=== PATIENT | female | born 2000 | race Caucasian/White ===

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

== ENCOUNTER 2025-07-22 17:47 | Emergency (ER) | payer MEDICAID, SELFPAY ==
[2025-07-22 17:47] VITALS: BP 122/80; PULSE 91; RESP 16; TEMP 36.9; O2SAT 96; BMI 45.7
--- NOTE | 2025-07-22 17:52 | ED.RN ---
ems reports prison reported pt has significant history of placing foreign objects in vaginal area. attempting to strangulate self with cords, gowns or anything she can get her hands on.
--- NOTE | 2025-07-22 18:08 | EX.ED.VIS.PS ---
HPI HPI - Psych History of Present Illness Chief Complaint: Suicidal Informant: patient Onset/Context/Timing Onset: Weeks (1) Context: Gradual Onset Timing: Continuous Worsened by: - (Nothing) Relieved by: Nothing Associated Symptoms Associated Symptoms - Psych: Positive for Depressed, Suicidal Thoughts and Auditory Hallucinations; Negative for Change in Eating, Change in sleeping, Paranoia or Visual Hallucinations Specific plan (suicidal thought): Tying a cord around her neck Narrative Narrative: Patient presents with suicidal ideations that became worse today. Patient states that they are gradually getting worse over the past week. Patient states that she tried to tie a cord around her neck earlier today. Patient states she feels like she would try to hurt herself any way I can. Patient admits to some auditory hallucinations where she has hearing voices. Patient states the voices are telling her to do something stupid. Patient denies any visual hallucinations. Patient denies any paranoid ideations. Patient states nothing made it worse and nothing makes it better. [facility] Medical History (Updated 07/22/25 @ 20:[address] Patel Soliz, DO) Depression Asthma Home Medications ?Medication ?Instructions ?Recorded ?Last Taken ?Type loratadine 10 mg tablet 10 mg PO DAILY 05/16/16 07/22/25 History acetaminophen 325 mg capsule 650 mg PO Q6H 07/22/25 Unknown History albuterol sulfate 90 mcg/actuation 2 puff inhalation TID PRN 07/22/25 Unknown History aerosol inhaler shortness of breath or wheezing aluminum-mag hydroxide-simethicone 10 ml PO Q6H PRN dyspepsia 07/22/25 Unknown History 200 mg-200 mg-20 mg/5 mL oral susp (Antacid-Antigas) asenapine maleate 10 mg sublingual 10 mg sublingual BID 07/22/25 07/22/25 History tablet budesonide-formoterol HFA 80 2 puff inhalation BID 07/22/25 07/22/25 History mcg-4.5 mcg/actuation aerosol inhaler (Symbicort) chlorpromazine 50 mg tablet 150 mg PO DAILY 07/22/25 07/21/25 History cholecalciferol (vitamin D3) 25 25 mcg PO DAILY 07/22/25 07/22/25 History mcg (1,000 unit) tablet ferrous sulfate 325 mg (65 mg 325 mg PO DAILY 07/22/25 07/22/25 History iron) tablet fluticasone propionate 50 2 spray intranasal DAILY 07/22/25 07/22/25 History mcg/actuation nasal spray,suspension hydroxyzine HCl 50 mg tablet 50 mg PO TID PRN anxiety 07/22/25 Unknown History levothyroxine 88 mcg tablet 88 mcg PO DAILY 07/22/25 07/22/25 History naltrexone 50 mg tablet 50 mg PO DAILY 07/22/25 07/22/25 History oxcarbazepine 600 mg tablet 600 mg PO BID 07/22/25 07/22/25 History oxybutynin chloride 5 mg tablet 5 mg PO TID 07/22/25 07/22/25 History pantoprazole 40 mg tablet,delayed 40 mg PO DAILY 07/22/25 07/22/25 History release polyethylene glycol 3350 17 17 g PO DAILY PRN constipation 07/22/25 Unknown History gram/dose oral powder prazosin 2 mg capsule 2 mg PO QHS 07/22/25 07/21/25 History sodium chloride 0.65 % nasal spray 2 spray intranasal Q2H PRN 07/22/25 Unknown History aerosol (Saline Mist) epistaxis trazodone 50 mg tablet 50 mg PO QHS PRN insomnia 07/22/25 Unknown History Allergy/AdvReac Type Severity Reaction Status Date / Time cabbage Allergy Intermediate nausea Verified 07/22/25 20:06 Penicillins Allergy Intermediate Rash Verified 07/22/25 20:06 risperidone Allergy Intermediate Hypotension Verified 07/22/25 20:06 and nausea Fish Containing Products Allergy Mild Rash Verified 07/22/25 20:06 Surgical History (Updated 07/22/25 @ 18:[address] Patel Soliz DO) Hx of wisdom tooth extraction Hx of cholecystectomy Social History Smoking Status: Never smoker ROS ROS ED Constitutional Constitutional ED: Denies chills or fever(s) Eyes Eyes: Denies blurry vision or change in vision ENT ENT ED: Denies rhinorrhea or sore throat Cardiovascular Cardiovascular: Denies chest pain or palpitations Respiratory/Chest Respiratory/Chest: Denies cough or dyspnea Gastrointestinal Gastrointestinal: Denies nausea or vomiting Genitourinary Genitourinary ED: Denies dysuria or hematuria Musculoskeletal Musculoskeletal: Reports neck pain; Denies back pain Integumentary Denies abscess or rash Neurologic Neurologic: Reports headache(s); Denies weakness Psychiatric Psychiatric: Reports depression and suicidal thoughts Allergic/Immunologic Allergic/Immunologic ED: Denies mouth swelling or urticaria EXAM Physical Exam Const Vital Signs: 07/22/25 17:47 07/22/25 18:47 07/22/25 19:00 Temperature 98.4 F Temperature Source Oral Pulse Rate 91 89 89 Respiratory Rate 16 16 Blood Pressure 122/80 H 146/97 H Blood Pressure Mean 94 113 Pulse Ox 96 96 96 Oxygen Delivery Method Room Air Room Air 07/22/25 19:50 Temperature Temperature Source Pulse Rate 78 Respiratory Rate 16 Blood Pressure 146/97 H Blood Pressure Mean 113 Pulse Ox 94 Oxygen Delivery Method Room Air Positive well nourished and well developed Constitutional Narrative: BMI is 45.8. General Appearance ED: well developed and NAD HEENT Reports moist mucous membranes HEENT Narrative: Oropharynx is clear. Airway is patent. normocephalic and atraumatic Neck supple and no JVD General: Negative for tenderness Resp normal respiratory effort and clear to auscultation bilaterally Cardio Rate: regular rate Rhythm: regular rhythm GI non-tender and non-distended Palpation: soft Neuro oriented x3, CN's II-XII intact bilaterally and no sensory deficits noted [place] Coma Scale: document GCS findings Spontaneous Obeys Commands Oriented 15 Sensorium / Orientation: alert Motor Exam: strength 5/5 throughout Psych mental status grossly normal Attitude: calm Activity / Motor Behavior: fidgetting Speech: minimal and soft Mood & Affect: depressed and flat affect Thought Content: suicidality, No phobia(s), No delusion(s) and hallucination(s) Positive for auditory Attention / Concentration: attention grossly intact MDM MDM MDM Narrative Medical decision making narrative: Medical screening labs will be obtained. CBC will be obtained to assess for leukocytosis and anemia. Basic metabolic profile will be obtained to assess for electrolyte abnormality renal function. Serum alcohol will be obtained to assess for alcohol intoxication. Serum hCG will be obtained to assess for . Urine drug screen will be obtained to assess for substance abuse. Lab Data Attestation: I reviewed the patient's lab results. Lab results narrative: CBC was reviewed. There is a mild anemia with a hemoglobin of 11.6 and hematocrit of 34.6. The remainder is within normal limits. Basic metabolic profile was reviewed and was within normal limits. Serum alcohol level was reviewed and was less than 10.1. Serum hCG was reviewed and was negative. Urine drug screen was reviewed and was negative. Labs: Laboratory Results - last 24 hr 07/22/25 18:11 WBC 9.9 RBC 4.77 Hgb 11.6 L Hct 34.6 L MCV 72.5 L MCH 24.3 L MCHC 33.5 RDW Std Deviation 51.3 H RDW Coeff of Teddy 19.7 H Plt Count 315 MPV 9.3 Immature Gran % (Auto) 0.500 Neut % (Auto) 72.7 H Lymph % (Auto) 17.6 L [place] % (Auto) 7.7 Eos % (Auto) 0.9 Baso % (Auto) 0.6 Absolute Neuts (auto) 7.2 Absolute Lymphs (auto) 1.74 Nucleated RBC % 0 Sodium 136 Potassium 3.9 Chloride 103 Carbon Dioxide 21.1 Anion Gap 12 BUN 8 Creatinine 0.71 Estim Creat Clear Calc 143.03 Est GFR (MDRD) Non-Af 121 BUN/Creatinine Ratio 11.1 Glucose 103 H Calcium 9.5 Serum , Qual NEGATIVE Urine Opiates Screen NEGATIVE U Buprenorphine Qual NEGATIVE Ur Oxycodone Screen NEGATIVE Urine Methadone Screen NEGATIVE Urine Fentanyl Screen NEGATIVE Ur Barbiturates Screen NEGATIVE Ur Phencyclidine Scrn NEGATIVE Ur Amphetamines Screen NEGATIVE U Benzodiazepines Scrn NEGATIVE Urine Cocaine Screen NEGATIVE U Cannabinoids Screen NEGATIVE Ethyl Alcohol < 10.1 Treatment and Re-Evaluation Narrative: Suicide precautions were maintained. Case was discussed with social secretary. She has been to evaluate the patient. She was able to get the patient to be transferred to [facility]. Patient will be transferred there when transportation becomes available. Patient understood and was agreeable with the plan. All questions were answered. Discharge Plan Triage Chief Complaint: Suicidal ED Provider: Patel Soliz Dx/Rx/DC Orders Clinical Impression: Depression, Suicidal ideation Prescriptions: No Action loratadine 10 MG tablet 10 mg PO DAILY albuterol sulfate 90 mcg/actuation HFA aerosol inhaler 2 puff inhalation TID PRN (Reason: shortness of breath or wheezing) asenapine maleate 10 mg tablet, sublingual 10 mg sublingual BID chlorpromazine 50 mg tablet 150 mg PO DAILY acetaminophen 325 mg capsule 650 mg PO Q6H alum-mag hydroxide-simeth [Antacid-Antigas] 200-200-20 mg/5 mL suspension 10 ml PO Q6H PRN (Reason: dyspepsia) Patient Comments: [NO ORIGINAL SIG] ferrous sulfate 325 mg (65 mg iron) tablet 325 mg PO DAILY fluticasone propionate 50 mcg/actuation spray,suspension 2 spray INTRANASAL DAILY hydroxyzine HCl 50 mg tablet 50 mg PO TID PRN (Reason: anxiety) naltrexone 50 mg tablet 50 mg PO DAILY pantoprazole 40 mg tablet,delayed release (DR/EC) 40 mg PO DAILY oxcarbazepine 600 mg tablet 600 mg PO BID polyethylene glycol 3350 17 gram/dose powder 17 g PO DAILY PRN (Reason: constipation) oxybutynin chloride 5 mg tablet 5 mg PO TID prazosin 2 mg capsule 2 mg PO QHS Saline Mist 0.65 % aerosol,spray 2 spray INTRANASAL Q2H PRN (Reason: epistaxis) Patient Comments: [NO ORIGINAL SIG] trazodone 50 mg tablet 50 mg PO QHS PRN (Reason: insomnia) levothyroxine 88 mcg tablet 88 mcg PO DAILY cholecalciferol (vitamin D3) 25 mcg (1,000 unit) tablet 25 mcg PO DAILY budesonide-formoterol [Symbicort] 80-4.5 mcg/actuation HFA aerosol inhaler 2 puff inhalation BID Primary Care Provider: Francis Muller Referrals: Lidia Figueroa MD [Non-Staff, Pediatrics] Print Language: Albanian Disposition Disposition: Psychiatric Hospital or Unit Discharge Location: [facility]
[2025-07-22 18:42] LABS: Barbiturate Urine NEGATIVE (< 200 ng/mL); Benzodiazepine Urine NEGATIVE (< 200 ng/mL); PCP Urine NEGATIVE (< 25 ng/mL); THC Urine NEGATIVE (< 50 ng/mL)
[2025-07-22 18:43] LABS: Alcohol, Blood (Medical)-Serum < 10.1 mg/dL (<=10.0); Anion Gap 12 (5-15); BUN 8 mg/dL (4-19); BUN/Creat Ratio 11.1 RATIO (10-20); Calcium,Total 9.5 mg/dL (7.6-11.0); Carbon Dioxide 21.1 mmol/L (21.0-32.0); Chloride 103 mmol/L (98-108); Estimated Creatinine Clearance 143.03 ml/min (50-250); Glucose 103 mg/dL (70-99); Potassium 3.9 mmol/L (3.3-5.1)
[2025-07-22 18:44] LABS: Hematocrit 34.6 % (37-47); Hemoglobin 11.6 g/dL (12.0-15.0); Immature Granulocytes Count 0.050 X10^3/uL (0.0-0.0); Mean Corp Hgb Conc 33.5 g/dL (32-36); Mean Corpuscular Volume 72.5 fL (81-99); Mean Platelet Vol. 9.3 fl (6.2-12.0); NRBC Flagged by Analyzer 0 % (0-5); Platelet Count 315 K/mm3 (150-450); RBC Distribution Width CV 19.7 % (11.6-14.6); RBC Distribution Width SD 51.3 fl (35.1-43.9); Red Blood Count 4.77 M/mm3 (4.2-5.4); White Blood Count 9.9 K/mm3 (4.4-11.0)
[2025-07-22 18:47] VITALS: BP 146/97; PULSE 89; O2SAT 96
[2025-07-22 19:00] VITALS: PULSE 89; RESP 16; O2SAT 96
[2025-07-22 19:03] LABS: Internal QC Validated? YES +Cl - CLEAR BKGD; Pregnancy, Serum, hCG Quali. NEGATIVE Negative; Record Kit Lot#, Serum Preg. 980607
--- NOTE | 2025-07-22 19:38 | ED.RN ---
Attempted to call legal gaandredian for consent to treat. No answer. Left message and call back number.
[2025-07-22 19:50] VITALS: BP 146/97; PULSE 78; RESP 16; O2SAT 94
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
--- NOTE | 2025-07-22 19:55 | ED.RN ---
Obtained consent to treat via phone.
--- NOTE | 2025-07-22 21:10 | CM.ED ---
Social Work Patient was referred and accepted at [facility]. [facility] is accepting physician, patient will be going to [facility], [facility] [phone] Option 3. Patients guardian was contacted and updated on same. [place] slip faxed. Patient and Vicky, staff member from [facility], were updated on accepting facility and transport time. Susi Rodriguez, SIGN LETTERER, FUR TAILOR
--- NOTE | 2025-07-22 22:53 | ED.RN ---
Report called to [facility]
[2025-07-23 00:22] VITALS: BP 149/93; PULSE 80; RESP 20; TEMP 36.8; O2SAT 98
[2025-07-23 05:59] VITALS: BP 135/81; PULSE 71; RESP 18; TEMP 36.6; O2SAT 96
--- NOTE | 2025-07-23 06:49 | PCA ---
ACCEPTANCE TO [facility] [address] [facility], [place]: [phone] OPT 3
== END 2025-07-23 06:57 ==
PROVIDERS: Emergency Provider Emergency Medicine; PCP Family Medicine; Visit Provider Emergency Medicine
DX: R45.851 Suicidal ideations (principal); R44.0 Auditory hallucinations; F32.A Depression, unspecified
CPT/HCPCS: 80048; 80307; 82077; 84703; 85025; 99285